=== PATIENT | female | born 1995 | race Two or more races ===

== ENCOUNTER 2023-07-21 20:43 | Emergency (ER) | payer OTHER ==
[2023-07-21 20:53] VITALS: BP 106/67; PULSE 91; RESP 20; TEMP 98.4; BMI 25.7
[2023-07-21] MEDS ORDERED: ACETAMINOPHEN INJECTION 100 ML IVPB ONE (21:25)
[2023-07-21] MEDS ORDERED: METOCLOPRAMIDE HCL INJECTION 10 MG/2 ML VIAL ONE (21:25)
[2023-07-21] MEDS: ACETAMINOPHEN 1000 MG/100 ML BAG IVPB ONE (21:40)
[2023-07-21] MEDS: LACTATED RINGERS SOLUTION 1000 ML INFUS.BAG IV ONE (21:40)
[2023-07-21] MEDS: METOCLOPRAMIDE HCL INJECTION 10 MG/2 ML VIAL IVPUSH ONE (21:41)
[2023-07-21] MEDS: METOCLOPRAMIDE HCL INJECTION 10 MG/2 ML VIAL IM ONE (21:41)
[2023-07-21 21:52] LABS: BASO % 0.2 % (0-2.0); EOS % 0.5 % (0-4.5); HEMATOCRIT 39.7 % (32.4-45.2); HEMOGLOBIN 13.8 GM/dL (10.7-15.3); MCH 30.5 pg (25.7-33.7); MCHC 34.8 g/dl (32.0-36.0); MEAN CELL VOLUME 87.6 fl (80-96); MEAN PLT VOLUME 7.7 fl (7.5-11.1); MONO % 8.1 % (3.8-10.2); NEUT % 54.2 % (42.8-82.8); PLATELET COUNT 267 10^3/uL (134-434); RBC 4.53 M/mm3 (3.60-5.2); RDW 12.9 % (11.6-15.6); WHITE BLOOD COUNT 5.5 K/mm3 (4.0-10.0)
[2023-07-21 21:58] LABS: INR 1.05 (0.83-1.09); PROTHROMBIN TIME (PATIENT) 12.2 SEC (9.7-13.0)
[2023-07-21 22:01] LABS: ACTIVATED PTT 26.2 SECONDS (25.2-36.5)
[2023-07-21 22:10] LABS: POTASSIUM 3.8 mmol/L (3.5-5.1)
[2023-07-21 22:13] LABS: ALBUMIN 3.6 g/dl (3.4-5.0); BLOOD UREA NITROGEN 11.4 mg/dL (7-18); MAGNESIUM 2.4 mg/dL (1.8-2.4)
[2023-07-21 22:16] LABS: CREATININE 0.8 mg/dL (0.55-1.3)
[2023-07-21 22:17] LABS: BILIRUBIN,TOTAL 1.2 mg/dL (0.2-1); TOT PROT 6.8 g/dl (6.4-8.2)
== END 2023-07-21 23:11 | disposition home or self-care (01) ==
LOC: JER 20:43
PROC: 3E033NZ Introduction of Analgesics, Hypnotics, Sedatives into Peripheral Vein, Percutaneous Approach (ICD-10-PCS; principal; 2023-07-21)
PROC: 3E033GC Introduction of Other Therapeutic Substance into Peripheral Vein, Percutaneous Approach (ICD-10-PCS; 2023-07-21)
DX: R11.2 Nausea with vomiting, unspecified (principal); R51.9 Headache, unspecified; R42 Dizziness and giddiness; R10.13 Epigastric pain; Z20.822 Contact with and (suspected) exposure to COVID-19
CPT/HCPCS: 0241U-QW; 36415; 80053; 83690; 83735; 84703; 85025; 85610; 85730; 86850; 86900; 86901; 99284-25; J0131

== ENCOUNTER 2023-11-24 18:23 | Emergency (ER) | payer OTHER ==
[2023-11-24 18:37] VITALS: BP 100/62; PULSE 88; RESP 18; TEMP 97.8; BMI 25.2
[2023-11-24] MEDS ORDERED: LIDOCAINE 4% PATCH TP ONE (20:27)
[2023-11-24] MEDS ORDERED: ACETAMINOPHEN 500 MG TABLET (FP) ONE (20:28)
[2023-11-24] MEDS: LIDOCAINE 4% PATCH TP ONE (20:33)
[2023-11-24] MEDS: ACETAMINOPHEN 500 MG TABLET (FP) PO ONE (20:33)
[2023-11-24] MEDS: LIDOCAINE PATCH REMOVAL MC SCH (22:52)
== END 2023-11-24 23:23 | disposition home or self-care (01) ==
LOC: JER 18:23
DX: O9A.213 Injury, poisoning and certain other consequences of external causes complicating pregnancy, third trimester (principal); R10.30 Lower abdominal pain, unspecified; O99.891 Other specified diseases and conditions complicating pregnancy; M53.3 Sacrococcygeal disorders, not elsewhere classified; Z3A.01 Less than 8 weeks gestation of pregnancy; W10.8XXA Fall (on) (from) other stairs and steps, initial encounter; Y92.019 Unspecified place in single-family (private) house as the place of occurrence of the external cause
CPT/HCPCS: 76817-TC; 99284-25

== ENCOUNTER 2023-12-31 17:34 | Emergency (ER) | payer OTHER ==
[2023-12-31 17:46] VITALS: BP 98/64; PULSE 78; RESP 18; TEMP 98.1; BMI 24.6
[2023-12-31] MEDS ORDERED: METOCLOPRAMIDE HCL INJECTION 10 MG/2 ML VIAL ONE (18:16)
[2023-12-31] MEDS ORDERED: ACETAMINOPHEN INJECTION 100 ML ONE (18:23)
[2023-12-31] MEDS: METOCLOPRAMIDE HCL INJECTION 10 MG/2 ML VIAL IVPUSH ONE (18:38)
[2023-12-31] MEDS: ACETAMINOPHEN 1000 MG/100 ML BAG IVPB ONE (18:38)
[2023-12-31] MEDS: SODIUM CHLORIDE 1,000 ML IV STA (18:38)
[2023-12-31 18:45] LABS: BASO % 0.6 % (0-2.0); EOS % 0.4 % (0-4.5); HEMATOCRIT 39.8 % (32.4-45.2); HEMOGLOBIN 13.7 GM/dL (10.7-15.3); LYMPH % 22.6 % (8-40); MCHC 34.4 g/dl (32.0-36.0); MEAN CELL VOLUME 87.3 fl (80-96); MEAN PLT VOLUME 7.8 fl (7.5-11.1); NEUT % 69.4 % (42.8-82.8); PLATELET COUNT 301 10^3/uL (134-434); RBC 4.56 M/mm3 (3.60-5.2); RDW 12.8 % (11.6-15.6); WHITE BLOOD COUNT 10.4 K/mm3 (4.0-10.0)
[2023-12-31 18:47] LABS: HCG,QUALITATIVE URINE Positive
[2023-12-31 18:51] LABS: EPI CELLS >36 /uL (0-25.1); HYALINE CASTS 1 /uL (0-3.1); URINE APPEARANCE TURBID; URINE BACTERIA 1026 /uL (0-1359); URINE BILIRUBIN NEGATIVE (NEGATIVE); URINE COLOR DK YELLOW; URINE GLUCOSE (UA) NEGATIVE (NEGATIVE); URINE KETONE 3+ (NEGATIVE); URINE LEUK ESTERASE 1+ (NEGATIVE); URINE NITRITE NEGATIVE (NEGATIVE); URINE PROTEIN NEGATIVE (NEGATIVE); URINE RBC 15 /uL (0-23.9); URINE WBC 44 /uL (0-25.8)
[2023-12-31 19:01] LABS: POTASSIUM 3.9 mmol/L (3.5-5.1)
[2023-12-31 19:03] LABS: ALBUMIN 3.8 g/dl (3.4-5.0); BLOOD UREA NITROGEN 8.5 mg/dL (7-18); CALCIUM 10.1 mg/dL (8.5-10.1)
[2023-12-31 19:07] LABS: CREATININE 0.7 mg/dL (0.55-1.3)
[2023-12-31 19:08] LABS: BILIRUBIN,TOTAL 1.1 mg/dL (0.2-1); TOT PROT 7.1 g/dl (6.4-8.2)
[2023-12-31] MEDS ORDERED: CEPHALEXIN MONOHYDRATE 500 MG CAPSULE (UD) ONE (19:13)
[2023-12-31] MEDS: CEPHALEXIN MONOHYDRATE 500 MG CAPSULE (UD) PO ONE (19:19)
[2023-12-31] MEDS: CEPHALEXIN 250 MG/5 ML ORAL SUSPENSION PO ONE (19:20)
[2023-12-31 20:00] LABS: HIV INTERPRETATION NEGATIVE (NEGATIVE)
== END 2023-12-31 19:20 | disposition home or self-care (01) ==
LOC: JER 17:34
PROC: 3E033NZ Introduction of Analgesics, Hypnotics, Sedatives into Peripheral Vein, Percutaneous Approach (ICD-10-PCS; principal; 2023-12-31)
PROC: 3E033GC Introduction of Other Therapeutic Substance into Peripheral Vein, Percutaneous Approach (ICD-10-PCS; 2023-12-31)
PROC: 3E0337Z Introduction of Electrolytic and Water Balance Substance into Peripheral Vein, Percutaneous Approach (ICD-10-PCS; 2023-12-31)
DX: O21.9 Vomiting of pregnancy, unspecified (principal); O99.891 Other specified diseases and conditions complicating pregnancy; R42 Dizziness and giddiness; Z3A.10 10 weeks gestation of pregnancy
CPT/HCPCS: 36415; 80053; 81003; 84702; 84703; 85025; 86803; 87086; 87389; 99284-25; J0131